=== PATIENT | female | born 1955 | race Caucasian/White ===

== ENCOUNTER → 2019-05-17 12:56 | Outpatient (BNVA) | payer MEDICARE, MEDICAID, SELFPAY | PROVIDERS: Family Provider Family Medicine; PCP Family Medicine; Visit Provider Family Medicine | DX: I15.0 Renovascular hypertension (principal); N18.3 Chronic kidney disease, stage 3 (moderate); E78.5 Hyperlipidemia, unspecified; E11.40 Type 2 diabetes mellitus with diabetic neuropathy, unspecified; E11.42 Type 2 diabetes mellitus with diabetic polyneuropathy | CPT/HCPCS: 36415; 80053; 80061; 83036; 85007; 85027 ==

== ENCOUNTER → 2019-06-17 11:01 | Outpatient (BNVA) | payer MEDICARE, MEDICAID, SELFPAY | PROVIDERS: Family Provider Family Medicine; PCP Family Medicine; Visit Provider Family Medicine | DX: E11.40 Type 2 diabetes mellitus with diabetic neuropathy, unspecified (principal); M79.674 Pain in right toe(s); N39.41 Urge incontinence | CPT/HCPCS: 84550 ==

== ENCOUNTER → 2019-06-21 14:22 | Outpatient (BNVA) | payer MEDICARE, MEDICAID, SELFPAY | PROVIDERS: Family Provider Family Medicine; PCP Family Medicine; Visit Provider Nurse Practitioner Psychiatric/Mental Health | DX: F33.2 Major depressive disorder, recurrent severe without psychotic features (principal); F41.1 Generalized anxiety disorder; F43.12 Post-traumatic stress disorder, chronic | CPT/HCPCS: 99213 ==

== ENCOUNTER 2019-09-13 08:56 | Outpatient (CLI) | payer MEDICARE, MEDICAID, SELFPAY ==
--- NOTE | 2019-09-13 09:02 | MM_ITS ---
WS: [id number] SCREENING DIGITAL MAMMOGRAM WITH CAD HISTORY: SCREENING COMPARISON: None available. Bilateral CC and MLO views submitted. Computer aided detection analyzed. Breast composition: There are scattered areas of fibroglandular density. No suspicious masses, microc alcifications or architectural distortion. MM/[id number] IMPRESSION: BI-RADS: 1-Negative FOLLOW UP: 1 Year Follow-up
== END 2019-09-13 08:57 | disposition home or self-care (01) ==
LOC: RADSHAW 08:56
PROVIDERS: Family Provider Family Medicine; PCP Family Medicine; Visit Provider Family Medicine
DX: Z12.31 Encounter for screening mammogram for malignant neoplasm of breast (principal); I10 Essential (primary) hypertension; E11.9 Type 2 diabetes mellitus without complications; M1A.9XX1 Chronic gout, unspecified, with tophus (tophi); E78.5 Hyperlipidemia, unspecified; E11.42 Type 2 diabetes mellitus with diabetic polyneuropathy
CPT/HCPCS: 77067; 80053; 82044; 83036; 84550; 85025

== ENCOUNTER → 2019-10-11 08:21 | Outpatient (BNVA) | payer MEDICARE, MEDICAID, SELFPAY | PROVIDERS: Family Provider Family Medicine; PCP Family Medicine; Visit Provider Nurse Practitioner Psychiatric/Mental Health | DX: F33.2 Major depressive disorder, recurrent severe without psychotic features (principal); F41.1 Generalized anxiety disorder; F43.12 Post-traumatic stress disorder, chronic | CPT/HCPCS: 99213 ==

== ENCOUNTER → 2019-12-13 07:37 | Outpatient (BNVA) | payer MEDICARE, MEDICAID, SELFPAY | PROVIDERS: Family Provider Family Medicine; PCP Family Medicine; Visit Provider Nurse Practitioner Psychiatric/Mental Health | DX: E11.9 Type 2 diabetes mellitus without complications (principal); I10 Essential (primary) hypertension; E78.5 Hyperlipidemia, unspecified; M1A.9XX1 Chronic gout, unspecified, with tophus (tophi) | CPT/HCPCS: 80053; 80061; 83036; 99213 ==

== ENCOUNTER → 2020-03-06 07:41 | Outpatient (BNVA) | payer MEDICARE, MEDICAID, SELFPAY | PROVIDERS: Family Provider Family Medicine; PCP Family Medicine; Visit Provider Nurse Practitioner Psychiatric/Mental Health | DX: F33.2 Major depressive disorder, recurrent severe without psychotic features (principal); F41.1 Generalized anxiety disorder; F43.12 Post-traumatic stress disorder, chronic | CPT/HCPCS: 99213 ==

== ENCOUNTER → 2020-03-13 08:41 | Outpatient (BNVA) | payer MEDICARE, MEDICAID, SELFPAY | PROVIDERS: Family Provider Family Medicine; PCP Family Medicine; Visit Provider Family Medicine | DX: E11.9 Type 2 diabetes mellitus without complications (principal); I10 Essential (primary) hypertension; N39.41 Urge incontinence; E78.5 Hyperlipidemia, unspecified; N39.46 Mixed incontinence; Z68.36 Body mass index [BMI] 36.0-36.9, adult | CPT/HCPCS: 80053; 83036 ==

== ENCOUNTER → 2020-05-29 08:55 | Outpatient (BNVA) | payer MEDICARE, MEDICAID, SELFPAY | PROVIDERS: Family Provider Family Medicine; PCP Family Medicine; Visit Provider Nurse Practitioner Psychiatric/Mental Health | DX: F33.2 Major depressive disorder, recurrent severe without psychotic features (principal); F41.1 Generalized anxiety disorder; F43.12 Post-traumatic stress disorder, chronic | CPT/HCPCS: 99213 ==

== ENCOUNTER → 2020-06-12 08:57 | Outpatient (BNVA) | payer MEDICARE, MEDICAID, SELFPAY | PROVIDERS: Family Provider Family Medicine; PCP Family Medicine; Visit Provider Family Medicine | DX: I10 Essential (primary) hypertension (principal); E11.9 Type 2 diabetes mellitus without complications; E78.5 Hyperlipidemia, unspecified; M1A.9XX1 Chronic gout, unspecified, with tophus (tophi); Z23 Encounter for immunization | CPT/HCPCS: 80053; 83036; 85025 ==

== ENCOUNTER → 2020-08-23 07:37 | Outpatient (BNVA) | payer MEDICARE, MEDICAID, SELFPAY | PROVIDERS: Family Provider Family Medicine; PCP Family Medicine; Visit Provider Nurse Practitioner Psychiatric/Mental Health | DX: F33.2 Major depressive disorder, recurrent severe without psychotic features (principal); F41.1 Generalized anxiety disorder; F43.12 Post-traumatic stress disorder, chronic | CPT/HCPCS: 99213 ==

== ENCOUNTER → 2020-09-25 09:11 | Outpatient (BNVA) | payer MEDICARE, MEDICAID, SELFPAY | PROVIDERS: Family Provider Family Medicine; PCP Family Medicine; Visit Provider Family Medicine | DX: I10 Essential (primary) hypertension (principal); E11.9 Type 2 diabetes mellitus without complications | CPT/HCPCS: 80053; 83036 ==

== ENCOUNTER → 2020-11-20 07:06 | Outpatient (BNVA) | payer MEDICARE, MEDICAID, SELFPAY | PROVIDERS: Family Provider Family Medicine; PCP Family Medicine; Visit Provider Nurse Practitioner Psychiatric/Mental Health | DX: F33.2 Major depressive disorder, recurrent severe without psychotic features (principal); F41.1 Generalized anxiety disorder; F43.12 Post-traumatic stress disorder, chronic | CPT/HCPCS: 99214 ==

== ENCOUNTER → 2020-12-18 09:17 | Outpatient (BNVA) | payer MEDICARE, MEDICAID, SELFPAY | PROVIDERS: Family Provider Family Medicine; PCP Family Medicine; Visit Provider Family Medicine | DX: E11.9 Type 2 diabetes mellitus without complications (principal); I10 Essential (primary) hypertension; E78.5 Hyperlipidemia, unspecified; N39.41 Urge incontinence | CPT/HCPCS: 80053; 80061; 82043; 83036; 85025 ==

== ENCOUNTER → 2021-01-08 07:21 | Outpatient (BNVA) | payer MEDICARE, MEDICAID, SELFPAY | PROVIDERS: Family Provider Family Medicine; PCP Family Medicine; Visit Provider Nurse Practitioner Psychiatric/Mental Health | DX: F33.2 Major depressive disorder, recurrent severe without psychotic features (principal); F41.1 Generalized anxiety disorder; F43.12 Post-traumatic stress disorder, chronic | CPT/HCPCS: 99214 ==

== ENCOUNTER → 2021-03-19 09:02 | Outpatient (BNVA) | payer MEDICARE, MEDICAID, SELFPAY | PROVIDERS: Family Provider Family Medicine; PCP Family Medicine; Visit Provider Family Medicine | DX: N39.46 Mixed incontinence (principal); E11.9 Type 2 diabetes mellitus without complications; I10 Essential (primary) hypertension | CPT/HCPCS: 80053; 81000; 83036 ==

== ENCOUNTER → 2021-05-29 08:03 | Outpatient (BNVA) | payer MEDICARE, MEDICAID, SELFPAY | PROVIDERS: Family Provider Family Medicine; PCP Family Medicine; Visit Provider Nurse Practitioner Psychiatric/Mental Health | DX: F33.2 Major depressive disorder, recurrent severe without psychotic features (principal); F41.1 Generalized anxiety disorder; F43.12 Post-traumatic stress disorder, chronic | CPT/HCPCS: 99214 ==

== ENCOUNTER → 2021-07-03 11:51 | Outpatient (BNVA) | payer MEDICARE, MEDICAID, SELFPAY | PROVIDERS: Family Provider Family Medicine; PCP Family Medicine; Visit Provider Family Medicine | DX: N39.46 Mixed incontinence (principal); E11.9 Type 2 diabetes mellitus without complications; Z23 Encounter for immunization; E78.5 Hyperlipidemia, unspecified; I10 Essential (primary) hypertension | CPT/HCPCS: 80053; 80061; 83036 ==

== ENCOUNTER → 2021-11-08 15:01 | Outpatient (BNVA) | payer MEDICARE, MEDICAID, SELFPAY | PROVIDERS: Family Provider Family Medicine; PCP Family Medicine; Visit Provider Nurse Practitioner Psychiatric/Mental Health | DX: F33.2 Major depressive disorder, recurrent severe without psychotic features (principal); F41.1 Generalized anxiety disorder | CPT/HCPCS: 99213 ==

== ENCOUNTER → 2022-01-01 11:02 | Outpatient (BNVA) | payer MEDICARE, MEDICAID, SELFPAY | PROVIDERS: Family Provider Family Medicine; PCP Family Medicine; Visit Provider Family Medicine | DX: E11.9 Type 2 diabetes mellitus without complications (principal) | CPT/HCPCS: 80053; 82043; 83036; 85025 ==

== ENCOUNTER → 2022-07-02 09:46 | Outpatient (BNVA) | payer MEDICARE, MEDICAID, SELFPAY | PROVIDERS: Family Provider Family Medicine; PCP Family Medicine; Visit Provider Family Medicine | DX: E78.5 Hyperlipidemia, unspecified (principal); E11.9 Type 2 diabetes mellitus without complications | CPT/HCPCS: 80053; 80061; 83036 ==

== ENCOUNTER 2022-08-23 12:32 | Outpatient (CLI) | payer MEDICARE, MEDICAID, SELFPAY ==
--- NOTE | 2022-08-23 13:05 | MM_ITS ---
WS: [id number] BILATERAL 3D TOMOSYNTHESIS DIGITAL SCREENING MAMMOGRAPHY WITH CAD CLINICAL INFORMATION: SCREEN HISTORY: Screening mammogram. No current complaints. COMPARISON: September 13, 2019 TECHNIQUE: Bilateral CC and MLO views. FINDINGS: Scattered fibroglandular densities bilaterally. No suspicious focal mass, asymmetry, calcifications, or architectural distortion. No evidence of malignancy. A few tiny incidental punctate calcifications . MM/[id number] IMPRESSION: BI-RADS: 2-Benign FOLLOW UP: 1 Year Follow-up Recommend return to annual screening mammography.
== END 2022-08-23 12:33 | disposition home or self-care (01) ==
LOC: RAD 12:36
PROVIDERS: PCP Family Medicine; Visit Provider Family Medicine
DX: Z12.31 Encounter for screening mammogram for malignant neoplasm of breast (principal)
CPT/HCPCS: 77063; 77067

== ENCOUNTER → 2022-12-30 10:26 | Outpatient (BNVA) | payer MEDICARE, MEDICAID, OTHER, SELFPAY | PROVIDERS: PCP Family Medicine; Visit Provider Family Medicine | DX: E11.9 Type 2 diabetes mellitus without complications (principal); Z78.0 Asymptomatic menopausal state | CPT/HCPCS: 80053; 82043; 83036; 85025 ==

== ENCOUNTER 2023-03-03 13:17 | Outpatient (CLI) | payer MEDICARE, MEDICAID, SELFPAY ==
--- NOTE | 2023-03-03 | XR_ITS ---
WS: [id number] DEXA (DUAL ENERGY X-RAY ABSORPTIOMETRY) Bone mineral density was performed using a [employer] machine. HISTORY: postmenopausal COMPARISON: None available. Lumbar spine BMD (L1-L4): 1.147 g/cm2 T score: -0.3 Z score: 0.7 Total hip BMD: Left: 0.906 g/cm2. T score: -0.8 Z score: 0.1 Right: 0.794 g/cm2. T score: -1.7 Z score: -0.7 10 year probability of a major osteoporotic fracture is 29.9% IMPRESSION: OSTEOPENIA based upon the WHO classification for females.
== END 2023-03-03 13:18 | disposition home or self-care (01) ==
LOC: RAD 13:23
PROVIDERS: PCP Family Medicine; Visit Provider Family Medicine
DX: Z78.0 Asymptomatic menopausal state (principal); M85.80 Other specified disorders of bone density and structure, unspecified site
CPT/HCPCS: 77080

== ENCOUNTER 2023-05-11 11:15 | Emergency (ER) | payer MEDICARE, MEDICAID, SELFPAY ==
[2023-05-11] VITALS (76 sets, daily range): BP systolic 65–197; BP diastolic 36–101; PULSE 56–138; RESP 0–48; TEMP 37.9; O2SAT 71–91; BMI 28.3
--- NOTE | 2023-05-11 11:32 | XRR_ITS ---
PROCEDURE INFORMATION: Exam: XR Chest Exam date and time: 05/11/2023 12:23 PM Age: 67 years old Clinical indication: Device placement; Ett placement (vent status); Patient HX: SOB; Ett/og placement TECHNIQUE: Imaging protocol: Radiologic exam of the chest. Views: 1 view. COMPARISON: No relevant prior studies available. FINDINGS: Tubes, catheters and devices: Endotracheal tube approximately 2.5 cm above the soumya. Enteric tube tip in the mid gastric body with side port below the diaphragm. Lungs: Gjyl-ksvlbxb-ejmy-right consolidation. Pleural spaces: No pleural effusion. No pneumothorax. Heart/Mediastinum: No cardiomegaly. Bones/joints: No acute findings. XR/XR chest 1V portable [id number] IMPRESSION: As above.
--- NOTE | 2023-05-11 11:33 | ED_ITS ---
HPI - SOB/Dyspnea 2 General: Chief Complaint: Shortness of Breath/Dyspnea Stated Complaint: WEAKNESS Time Seen by Provider: 05/11/23 11:31 Source: patient Mode of arrival: EMS History of Present Illness: HPI Narrative: 67-year-old female presents emergency ro om in acute respiratory distress from EMS. She is tachypneic and hypoxic. EMS reported she was 70% oxygen saturation on room air. She has been sick for the last week progressively worsening her daughter who is a nurse accompanies her. She states she markedly worsened overnight's been coughing gasping for breath and had a fever at home as well. MD elicited complaint: shortness of breath and cough Pertinent past history: diabetes Onset (ago): week(s) (1) Context: recent illness Associated symptoms: Reports chest congestion, cough and fever(s); Deny abdominal pain or chest pain Treatment prior to arrival: oxygen Related Data: Home oxygen amount: none Review of Systems 2 Const: Reports: fever(s) and chills Card: Denies: chest pain Resp: Reports: dyspnea, non-productive cough, wheezing and chest congestion GI: Denies: abdominal pain : Denies: dysuria, urinary frequency or urinary urgency Musc: Denies: neck pain or back pain Skin/Breast: Denies: rash PFSH ED 2 PFSH: Medical History Mixed stress and urge urinary incontinence Gout Chronic post-traumatic stress disorder Generalized anxiety disorder Major depressive disorder, recurrent severe without psychotic features Essential (primary) hypertension CKD (chronic kidney disease), stage III Diabetic neuropathy Dyslipidemia Urge incontinence Type 2 diabetes mellitus, without long-term current use of insulin Surgical History History of appendectomy History of tonsillectomy History of cholecystectomy H/O section H/O knee surgery Family History Father Non-Hodgkin lymphoma Grandmother Cancer breast Social History Smoking and tobacco/nicotine status: never used tobacco/nicotine Alcohol intake: never Substance/Drug Use: never Adopted: No Caregiver/support person: No Lives independently: No Marital status: Current occupational status: retired Current gender identity: Female Female Reproductive History: Para: 2 Date of menopause: 08/29/99 Physical Exam 2 Const: GENERAL APPEARANCE: cooperative ORIENTATION/CONSCIOUSNESS: Yes awake, Yes oriented to person, Yes oriented to place and Yes oriented to time HENMT: COMMON NORMALS: normocephalic, atraumatic and hearing grossly normal bilaterally HEAD & SCALP: normocephalic and atraumatic Resp: EFFORT & INSPECTION: Yes abnormal respiratory pattern, Yes respiratory distress, Yes labored and Yes uses accessory muscles AUSCULTATION: rhonchi and wheezes Cardio: COMMON NORMALS: No murmurs present (Cardio) RATE: tachycardic GI: COMMON NORMALS: Soft to palpation and No hepatosplenomegaly present A USCULTATION: Yes normoactive bowel sounds PALPATION: Yes Soft to palpation, No Tenderness to palpation present (GI), No Guarding due to palpation present (GI) and Yes No hepatosplenomegaly present Extremity: COMMON NORMALS: normal to inspection, capillary refill normal, no clubbing, cyanosis or edema, no calf tenderness and no pedal edema Neuro: SENSORIUM/ORIENTATION: Yes oriented to person, Yes oriented to place and Yes oriented to time Skin: COMMON NORMALS: no rashes or lesions noted GENERAL SKIN EXAM: no rashes or lesions noted Procedures Central Line Placement Right IJ: Time Out Performed: Yes Patient Placed on Monitor/Pulse Ox: Yes MD Prep: mask, gown and gloves Central Line Prep: Chlorhexidine scrub Local Anesthetic: lidocaine 1% Ultrasound Used for Placement: Yes Central Line Lumen Inserted: triple Post Procedure: sutured in place, good blood return, all ports aspirated, flushed, capped and sterile dressing applied Post Procedure X-Ray: tip of catheter in good position Patient Tolerated Procedure: well Complications: none Intubation Time out performed: Yes sedative: Etomidate Mg Given: 20 Mg Given: 10 Tube Secured Depth (cm): 22 Tube Secured Location: lips Tube Placement Confirmation: visualized tube passing through cords, equal breath sounds bilaterally, no breath sounds over epigastrium and confirmation by capnometry Patient Tolerated Procedure: well Intubation Complications: none Course 2 Vital Signs: Vital signs: Vital Signs Temperature 100.2 F H 05/11/23 11:16 Pulse Rate 59 L 05/11/23 19:00 Respiratory Rate 16 05/11/23 19:00 Blood Pressure 98/59 05/11/23 19:20 Pulse Oximetry 83 L 05/11/23 19:00 Oxygen Delivery Me thod Mechanical Ventil ation 05/11/23 19:00 Oxygen Flow Rate 15 05/11/23 11:16 Fraction of Inspir ed Oxygen 100 05/11/23 13:42 MDM - SOB/Dyspnea Medical Decision Making Patient initially presents in severe respiratory distress but is also hypertensive. She has significant leukocytosis. Her work of breathing was significant with a respiratory rate in the 50s and 60s at times. Initial blood gas was much better than anticipated how however she continued to have severe respiratory distress she was intubated because of her work of breathing. Initially after intubation she remained hypertensive and her oxygenation significantly improved. However after her first blood gas she become more acidotic she began to increase respirations significantly over the respiratory setting on the ventilator. This began about an hour after she was intubated. She was given etomidate and vecuronium for her intubation, then initially was sustained on fentanyl and Versed for sedatives. According to daughter the patient takes pain medications in the form of narcotics regularly suspected that she was showing tolerance to the fentanyl. We added propofol. Patient was then noted to develop A-fib with rapid ventricular response she did respond well initially to push dose of Cardizem and took some time to get the IV drip of Cardizem started by time her rate is gone up again she was rebolus Cardizem was titrated up. At this time she began to develop hypotension. Initially we given her small amounts of fluids but did not give her a full sepsis bolus because she was not hypotensive and rather actually hypertensive. When she developed a hypotension she was given a full sepsis bolus. She already had cultures and received antibiotics. Subsequently Levophed was started.. We then added Precedex for further sedation. Her pressure continued to remain very low Levophed was titrated up and we did titrated the propofol down and eventually stopped her heart rate converted back to normal sinus rhythm were able to stop the Cardizem. Around this time her RSV came back as positive flu and COVID were negative. We initially had plan to admit the patient here but developed significant problems maintaining her oxygen saturations on the ventilator. We did have some success with a single push dose of vecuronium with ceftriaxone. Significant results obtained was 85 to 87%. Patient was continuously respiratory acidosis. Discussed with hospitalist service initially with repeat admitted here this event however because of continued difficulty managing her oxygenation status we mutually decided it would be in the patient's best interest to be transferred to a tertiary care center with glaze maker and pulmonology available suspect she may benefit from bronchial lavage to evaluate for mucous plugging. Discussed this with the daughter she is in agreement. Patient be transferred via air ambulance we have had acceptance at [facility] in [place] to the ICU. Medical Records I reviewed the patient's medical records. Lab Data I reviewed the patient's lab results. 05/11/23 11:49 05/11/23 11:49 Labs/Radiology: Radiology Impressions Chest X-Ray 05/11/23 14:33 IMPRESSION: As above. Gallbladder Ultrasound 05/11/23 15:05 IMPRESSION: Gallbladder is poorly visualized, possibly contracted. Consider CT or MRCP if there is further clinical concern. Laboratory Results WBC 26.30 10^3/uL (3.29-11.43) H 05/11/23 11:49 RBC 6.05 10^6/uL (3.85-5.65) H 05/11/23 11:49 Hgb 16.50 g/dL (11.27-16.99) 05/11/23 11:49 Hct 50.5 % (36-47) H 05/11/23 11:49 MCV 83.5 fl (85-98) L 05/11/23 11:49 MCH 27.3 pg (27-33) 05/11/23 11:49 MCHC 32.7 g/dL (30-55) 05/11/23 11:49 RDW 14.7 % (12.1-15.1) 05/11/23 11:49 Plt Count 346 10^3/cmm (157-399) 05/11/23 11:49 MPV 10.8 fL (7.4-10.4) H 05/11/23 11:49 Lymph % (Auto) Not Reportable 05/11/23 11:49 Menard % (Auto) Not Reportable 05/11/23 11:49 Lymph # (Auto) Not Reportable 05/11/23 11:49 Menard # (Auto) Not Reportable 05/11/23 11:49 Total Counted 100 (0-100) 05/11/23 11:49 Atypical Lymphs % 4.0 % (0-5) 05/11/23 11:49 Absolute Neutrophils 22.9 10^3/cmm (1.4-6.5) H 05/11/23 11:49 Segmented Neutrophils 81 % 05/11/23 11:49 Abs Segm Neuts (Man) 21.3 10/cmm (1.6-7.1) H 05/11/23 11:49 Band Neutrophils 6.0 % 05/11/23 11:49 Abs Band Neuts (Man) 1.6 10^3/cmm (0.0-1.2) H 05/11/23 11:49 Absolute Lymphocytes 1.8 10^3/cmm (1.2-3.4) 05/11/23 11:49 Lymphocytes (Manual) 3 % 05/11/23 11:49 Monocytes (Manual) 0.0 % 05/11/23 11:49 Absolute Monocytes 0.0 10^3/cmm (0.1-0.6) L 05/11/23 11:49 Eosinophils (Manual) 0 % 05/11/23 11:49 Absolute Eosinophils 0.0 10^3/cmm (0.0-0.7) 05/11/23 11:49 Basophils (Manual) 0.0 % 05/11/23 11:49 Absolute Basophils 0.0 10^3/cmm (0.0-0.2) 05/11/23 11:49 Metamyelocytes 2.0 % 05/11/23 11:49 Myelocytes 3.0 % 05/11/23 11:49 Platelet Estimate Normal (Normal) 05/11/23 11:49 D-Dimer 4.05 ug/mLFEU (0-0.59) H 05/11/23 11:49 Specimen Type Arterial 05/11/23 15:00 Sample Site Brachial, left 05/11/23 15:00 ABG pH 7.24 (7.35-7.45) L 05/11/23 15:00 ABG pCO2 38.5 mmHg (35-45) 05/11/23 15:00 ABG pO2 48.4 mmHg (80.0-100.0) L 05/11/23 15:00 ABG PO2/FiO2 Ratio 0 05/11/23 15:00 ABG HCO3 16.4 mmol/L (22-26) L 05/11/23 15:00 ABG O2 Saturation 77.6 05/11/23 15:00 ABG Base Excess -10.3 mmol/L (-2.0-2.0) L 05/11/23 15:00 Alberto Test N/a 05/11/23 15:00 A-a O2 Gradient 80.4 mmHg (5-10) H 05/11/23 15:00 Hematocrit 49.5 % (37-47) H 05/11/23 15:00 Hgb O2 Saturation 76.2 % (95-100) L 05/11/23 15:00 Carboxyhemoglobin 1.2 %THgb (0.4-20.1) 05/11/23 15:00 Methemoglobin 0.6 % (0.4-1.5) 05/11/23 15:00 Total Hemoglobin 16.1 g/dL (12-16) H 05/11/23 15:00 Sodium 138.0 mmol/L (131-143) 05/11/23 15:00 Potassium 3.5 mmol/L (3.5-5.0) 05/11/23 15:00 Glucose 298.0 mg/dL (70-115) H 05/11/23 15:00 Ionized Calcium 1.2 mmol/L (1.1-1.4) 05/11/23 15:00 O2 Delivery Device Vent 05/11/23 15:00 FiO2 100.0 % 05/11/23 15:00 Tidal Volume 0.36 05/11/23 15:00 PEEP 10.0 cmH20 05/11/23 15:00 Nailing Machine Operator Automatic ID Gd 05/11/23 15:00 Sodium 135 mmol/L (136-145) L 05/11/23 11:49 Potassium 3.7 mmol/L (3.5-5.1) 05/11/23 11:49 Chloride 94 mmol/L (98-107) L 05/11/23 11:49 Carbon Dioxide 17 mmol/L (22-29) L 05/11/23 11:49 Anion Gap 27.7 (5-19) H 05/11/23 11:49 BUN 25 mg/dL (8-23) H 05/11/23 11:49 Creatinine 0.7 mg/dL (0.5-0.9) 05/11/23 11:49 GFR Calculation 83.0 mL/min (90-130) L 05/11/23 11:49 Glucose 264 mg/dL (65-115) H 05/11/23 11:49 Calculated Osmolality 294 mOsm/kg (285-295) 05/11/23 11:49 Lactic Acid 3.9 mmol/L (0.5-2.2) H 05/11/23 11:49 Lactic Acid (Sepsis) 7.5 mmol/L (0.5-2.2) H* 05/11/23 15:07 Calcium 9.6 mg/dL (8.5-10.5) 05/11/23 11:49 Magnesium 2.1 mg/dL (1.7-2.3) 05/11/23 11:49 Total Bilirubin 2.2 mg/dL (0.15-1.2) H 05/11/23 11:49 AST 48 U/L (0-32) H 05/11/23 11:49 ALT 29 U/L (0-33) 05/11/23 11:49 Alkaline Phosphatase 133 U/L (35-105) H 05/11/23 11:49 Creatine Kinase 237 U/L (26-192) H 05/11/23 11:49 Troponin T Baseline 13 ng/L (0-10) H 05/11/23 11:49 Troponin T 120 Minute 17.95 ng/L (0-10) H 05/11/23 14:34 Delta Troponin T 4.95 ABS# (0-10) 05/11/23 14:34 Troponin T Hi Sens 6Hr 32.87 ng/L (0-10) H 05/11/23 18:06 Troponin T Hi Sens 6Hr Delta 19.87 ng/L (0-12) H* 05/11/23 18:06 NT-Pro-B Natriuret Pep 496 pg/mL (0-125) H 05/11/23 11:49 Total Protein 6.3 g/dL (6.6-8.7) L 05/11/23 11:49 Albumin 3.1 g/dL (3.5-5.2) L 05/11/23 11:49 Globulin 3.2 g/dL (1.3-4.6) 05/11/23 11:49 Lipase 12 U/L (13-60) L 05/11/23 11:49 Urine Color Dora (Yellow) A 05/11/23 12:50 Urine Appearance Clear (CLEAR) 05/11/23 12:50 Urine pH 5 (5-7) 05/11/23 12:50 Ur Specific [place] 1.015 (1.005-1.030) 05/11/23 12:50 Urine Protein 2+ (Negative) H 05/11/23 12:50 Urine Glucose (UA) Norm (Normal) 05/11/23 12:50 Urine Ketones 2+ (Negative) H 05/11/23 12:50 Urine Blood 3+ (Negative) H 05/11/23 12:50 Urine Nitrate Negative (Negative) 05/11/23 12:50 Urine Bilirubin 1+ (Negative) H 05/11/23 12:50 Urine Urobilinogen 4 mg/dL (Negative) H 05/11/23 12:50 Ur Leukocyte Esterase Negative (Negative) 05/11/23 12:50 Urine RBC 10-15 /hpf (0-2) H 05/11/23 12:50 Urine WBC 5-10 /hpf (0-5) H 05/11/23 12:50 Ur Squamous Epith Cells 5-10 /hpf (0-5) H 05/11/23 12:50 Amorphous Sediment Not Reportable 05/11/23 12:50 Urine Bacteria 1+ /hpf (NONE) H 05/11/23 12:50 Serum Ketones Negative (Negative) 05/11/23 11:49 Coronavirus 229E (PCR) Not detected (NOT DETECT) 05/11/23 13:20 Influenza Type A Ag negative (Negative) 05/11/23 12:24 Influenza Type B Ag negative (Negative) 05/11/23 12:24 RSV Type A (PCR) Not detected (NOT DETECT) 05/11/23 17:14 RSV Type B (PCR) Detected (NOT DETECT) A 05/11/23 17:14 SARS-CoV-2 (PCR) Not detected (NOT DETECT) 05/11/23 13:20 All radiology interpretation(s) finalized by discharge Critical Care Time 2 Critical Care Time: Total Critical Care Time: 120 Attestation: The high probability of a clinically significant, sudden or life threatening deterioration of the patient's cardiovascular respiratory system(s) required my full and direct attention, intervention and personal management. The critical care time is as shown. This time is in addition to time spent performing any reported procedures but includes the following: [x] Data and vital sign review and interpretation [x] Patient assessment, examination and intervention [x] Documentation [x] Medication orders and management Discharge Plan Discharge Patient Disposition: Admitted As Inpatient Clinical Impression: Pneumonia, Type 2 diabetes mellitus, without long-term current use of insulin, Sepsis, RSV bronchiolitis Condition: Stable Coding Level of Care Code ED Cloth Examiner Machine for Juany Kiser
[2023-05-11 11:47] LABS: ABG PCO2 33.2 mmHg (35-45); ABG PH Result 7.37 (7.35-7.45); Alveolar-Arterial Oxygen Gradi 77.9 mmHg (5-10); Arterial Blood Gas Hematocrit 52.6 % (37-47); Base Excess ABG -4.8 mmol/L (-2.0-2.0); Blood Gas Operator Identificat glc; Blood Gas Sample Site Brachial, right; Blood Gas Sample Type Arterial; Carboxyhemoglobin 0.9 %THgb (0.4-20.1); HCO3 ABG 19.4 mmol/L (22-26); HGB O2 Sat 93.2 % (95-100); Ionized Calcium Level - ABG 1.2 mmol/L (1.1-1.4); Methemoglobin 0.2 % (0.4-1.5); Oxygen Device BIPAP; Oxygen Saturation ABG 94.2; PO2 ABG 73.4 mmHg (80.0-100.0); PO2 FiO2 Ratio Arterial Blood 0; Potassium Level - ABG 3.2 mmol/L (3.5-5.0); Total Hemoglobin 17.2 g/dL (12-16)
[2023-05-11 12:02] LABS: Hematocrit 50.5 % (36-47); Mean Corpuscular HGB Conc 32.7 g/dL (30-55); Mean Corpuscular Hemoglobin 27.3 pg (27-33); Mean Corpuscular Volume 83.5 fl (85-98); Mean Platelet Volume 10.8 fL (7.4-10.4); Platelet Count 346 10^3/cmm (157-399); Red Blood Count 6.05 10^6/uL (3.85-5.65); Red Cell Distribution Width 14.7 % (12.1-15.1)
[2023-05-11] MEDS: etomidate 2 mg/mL INJ SDV 10 mL 20 MG IVP (12:05)
[2023-05-11] MEDS: vecuronium 10 mg SDV IVP ×2 (12:06→15:56)
--- NOTE | 2023-05-11 12:15 | PC.NURSE ---
Patient increased work of breathing and did not improve on the bipap. Provider made decision to intubate. 1205 20 mg etomidate given IVP 1205 10mg vecoronium given IVP 1206 patient intubated 8 ET tube 22@lip.
[2023-05-11 12:18] LABS: Ketone (Acetest) Serum Negative (Negative)
--- NOTE | 2023-05-11 12:22 | PC.PHAR ---
MEDICATIONS VERIFIED BY CURRENT MED LIST LAST UPDATED 03/08/23. PT UNABLE TO VERIFY ANY OF HER MEDICATIONS AT THIS TIME. 05/11/23
[2023-05-11 12:29] LABS: Lactic Sepsis W/Reflex 3.9 mmol/L (0.5-2.2)
[2023-05-11 12:30] LABS: Troponin(5th) Baseline 13 ng/L (0-10)
[2023-05-11] MEDS: propofol 1,000 MG/100 ML INJ 10.89 MG IV (12:31)
[2023-05-11] MEDS: sodium chloride 0.9% 1,000 ML 999 ML IV (12:34)
[2023-05-11 12:36] LABS: Alanine Aminotransferase 29 U/L (0-33); Albumin Level 3.1 g/dL (3.5-5.2); Alkaline Phosphatase 133 U/L (35-105); Blood Urea Nitrogen 25 mg/dL (8-23); Calcium 9.6 mg/dL (8.5-10.5); Carbon Dioxide 17 mmol/L (22-29); Chloride 94 mmol/L (98-107); Creatine Phosphokinase 237 U/L (26-192); Globulin 3.2 g/dL (1.3-4.6); Glucose 264 mg/dL (65-115); Lipase 12 U/L (13-60); Magnesium 2.1 mg/dL (1.7-2.3); NT Pro B Type Natriuretic Pept 496 pg/mL (0-125); Osmolality Calculated 294 mOsm/kg (285-295); Sodium 135 mmol/L (136-145); Total Bilirubin 2.2 mg/dL (0.15-1.2); Total Protein 6.3 g/dL (6.6-8.7)
[2023-05-11 12:43] LABS: Anion Gap 27.7 (5-19); Aspartate Amino Transferase 48 U/L (0-32); Potassium 3.7 mmol/L (3.5-5.1)
[2023-05-11 12:50] LABS: Slide Review Slide Review Perform
[2023-05-11 12:51] LABS: Absolute Neutrophil 22.9 10^3/cmm (1.4-6.5); Absolute Segmented Neutrophil 21.3 10/cmm (1.6-7.1); Band Neutrophils Absolute 1.6 10^3/cmm (0.0-1.2); Eosinophils 0 %; Lymphocytes 3 %; Lymphocytes Absolute 1.8 10^3/cmm (1.2-3.4); Platelet Estimate Normal (Normal); Segmented Neutrophils 81 %; Total Cells Counted 100 (0-100)
[2023-05-11 13:09] LABS: ABG PCO2 53.7 mmHg (35-45); ABG PH Result 7.21 (7.35-7.45); Alveolar-Arterial Oxygen Gradi 1.7 mmHg (5-10); Arterial Blood Gas Hematocrit 51.9 % (37-47); Base Excess ABG -7.3 mmol/L (-2.0-2.0); Blood Gas Allen Test Pos; Blood Gas Sample Site Radial, right; Blood Gas Sample Type Arterial; Carboxyhemoglobin 0.6 %THgb (0.4-20.1); HCO3 ABG 21.4 mmol/L (22-26); HGB O2 Sat 89.7 % (95-100); Ionized Calcium Level - ABG 1.2 mmol/L (1.1-1.4); Methemoglobin 0.3 % (0.4-1.5); Oxygen Device VENT; Oxygen Saturation ABG 90.6; PO2 ABG 71.4 mmHg (80.0-100.0); Potassium Level - ABG 3.2 mmol/L (3.5-5.0); Total Hemoglobin 16.9 g/dL (12-16)
[2023-05-11 13:10] LABS: D Dimer 4.05 ug/mLFEU (0-0.59)
[2023-05-11 13:21] LABS: Bilirubin Urine 1+ (Negative); Blood Urine 3+ (Negative); Glucose Urine UA Norm (Normal); Ketones Urine 2+ (Negative); Nitrate Urine Negative (Negative); Protein Urine 2+ (Negative); Specific Gravity, Urine 1.015 (1.005-1.030); Urine Appearance Clear (CLEAR); Urine Color Orange (Yellow); Urobilinogen Urine 4 mg/dL (Negative); pH Urine 5 (5-7)
[2023-05-11 13:22] LABS: Add Urine Culture? Yes; Add Urine Microscopic? YES; Bacteria Urine 1+ /hpf; Leukocyte Esterase Urine Negative (Negative)
[2023-05-11] MEDS: dexamethasone 10 mg/mL INJ IM (13:32)
[2023-05-11 13:33] LABS: Influenza A by IFA negative (Negative); Influenza B by IFA negative (Negative)
[2023-05-11] MEDS: ipratropium-albuterol 3 mL Neb 6 ML INHALATION (13:36)
[2023-05-11] MEDS: piperacillin-tazobactam 3.375 GM in sodium chloride 0.9% (plus) 50 ML IV (13:37)
--- NOTE | 2023-05-11 13:43 | ECG_ITS ---
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 Measurements Intervals [place] Rate: 130 P: 0 IA: 0 QRS: 66 QRSD: 94 T: 49 QT: 349 QTc: 514 Interpretive Statements ATRIAL FIBRILLATION WITH RAPID VENTRICULAR RESPONSE MODERATE ST DEPRESSION [0.05+ mV ST DEPRESSION] No previous ECG available for comparison Electronically Signed On 05-11-2023 14:23:01 TIRE INSPECTOR by Tejinder Tyler M.D. [email or web address]
[2023-05-11 13:45] LABS: Reflex Lactate Order REFLEX LACTIC ORDERD
[2023-05-11] MEDS: dilTIAZem 5 mg/mL SDV 5 mL 20 MG IVP (13:56)
--- NOTE | 2023-05-11 14:00 | PC.NURSE ---
Patient respirations elevated to 50 and having poor oxygen saturations despite mechanical ventilation. Patient trying to breath over vent despite sedation. Provider notified. More sedation medications ordered. Patient heart rate also increased to 120's on the monitor. EKG obtained which showed AFIB, diltiazem ordered.
[2023-05-11] MEDS: midazolam hcl 100 MG/100 ML BAG IV ×2 (14:09→14:25)
[2023-05-11] MEDS: dilTIAZem 100 MG in sodium chloride 0.9% (add-van) 100 ML 10 MG IV (14:24)
[2023-05-11] MEDS: fentaNYL 1,000 MCG/100 ML BAG 5 MCG IV (14:25)
--- NOTE | 2023-05-11 14:33 | XRR_ITS ---
PROCEDURE INFORMATION: Exam: XR Chest Exam date and time: 05/11/2023 2:19 PM Age: 67 years old Clinical indication: Other vascular access device placement or adjustment; Central line, non-tunnelled; Patient HX: Central line placement TECHNIQUE: Imaging protocol: Radiologic exam of the chest. Views: 1 view. COMPARISON: CR (CHEST, ) 05/11/2023 12:23 PM FINDINGS: Right-sided central line tip projects over the cavoatrial junction. XR/XR chest 1V portable [id number] IMPRESSION: As above.
[2023-05-11] MEDS: midazolam 1 mg/mL INJ 2 mL 2 MG IVP (14:39)
--- NOTE | 2023-05-11 14:50 | PC.NURSE ---
Patient oxygen saturations continue to go down despite increased sedation and suctioning. Provider aware. More sedation medications ordered.
--- NOTE | 2023-05-11 14:51 | P.HP_ITS ---
Providers/Chief Complaint 2 Admitting Physician: Lawrence Abdi Primary Care Provider: Porsche Douglas DO Chief Complaint: WEAKNESS History of Present Illness Treat as noted as a consult note as patient is of being transferred from the ER to higher level care. 67-year-old lady with history of diabetes, diabetic neuropathy, CKD 3, HLD, MDD, presents with due to shortness of breath, cough, brought in by EMS, hypoxic on presentation 88% on 15 L nonrebreather, she has been sick for about a week refusing to come in until today. In ER tachypneic, labored breathing. Initially maintained on 15 L nonrebreather, but with respiratory distress was intubated for mechanical ventilatory support. Noted fever 100.2 Fahrenheit. Leukocytosis 26.3. ABG 7.21/53.7/71.4. Chest x-ray with left greater than right consolidation. In ER additionally went into new atrial fibrillation with RVR for which she received Cardizem. Central line was placed, x-ray reviewed and central line tip appears to be at Cavo atrial junction per radiologist, however, noted abnormal D-dimer, she will be going for CT angiogram, will confirm position. Has been having high requirements for sedation. Discussed condition and plans with her daughter at bedside. Review of Systems 2 General: Reports: ROS unobtainable due to endotracheal tube Medications/Allergies Home Medications Medication Instructions Recorded Confirmed Last Taken Type incontinence pad, liner, disp #18 ea 08/13/19 05/11/23 Unknown Rx (Poise Pads) venlafaxine 150 mg 150 mg PO QAM #90 caps 10/24/22 05/11/23 Unknown Rx capsule,extended release 24 hr (Effexor XR) allopurinol 300 mg tablet 300 mg PO DAILY #90 tabs 12/09/22 05/11/23 Unknown Rx amlodipine 5 mg tablet (Norvasc) 5 mg PO DAILY 90 days #90 tabs 12/30/22 05/11/23 Unknown Rx oxybutynin chloride 10 mg 20 mg (2 x 10 mg) PO QDAY 90 days 12/30/22 05/11/23 Unknown Rx tablet,extended release 24 hr #180 tabs simvastatin 20 mg tablet (Zocor) 20 mg PO QDAY #90 tabs 12/30/22 05/11/23 Unknown Rx clonazepam 0.5 mg tablet (Klonopin) 0.5 mg PO TID PRN anxiety 30 days 01/16/23 05/11/23 Unknown Rx #90 tabs semaglutide 1 mg/dose (4 mg/3 mL) 1 mg (0.75 mL) SUBCUT .weekly #3 mL 03/04/23 05/11/23 Unknown Rx subcutaneous pen injector alendronate 70 mg tablet (Fosamax) 70 mg PO .weekly #12 tabs 03/06/23 05/11/23 Unknown Rx calcium carbonate 500 mg calcium 500 mg PO DAILY #90 tabs 03/06/23 05/11/23 Unknown Rx (1,250 mg) tablet cholecalciferol (vitamin D3) 125 125 mcg PO DAILY #90 caps 03/06/23 05/11/23 Unknown Rx mcg (5,000 unit) capsule pregabalin 50 mg capsule (Lyrica) 50 mg PO BID #180 caps 03/18/23 05/11/23 Unknown Rx escitalopram oxalate 10 mg tablet 10 mg PO QAM 05/11/23 05/11/23 Unknown History (Lexapro) lisinopril 20 mg tablet 20 mg PO DAILY 05/11/23 05/11/23 Unknown History Allergies Allergy/AdvReac Type Severity Reaction Status Date / Time No Known Allergies Allergy Verified 01/16/23 11:16 PFSH Acute 2 PFSH: Medical History Mixed stress and urge urinary incontinence Gout Chronic post-traumatic stress disorder Generalized anxiety disorder Major depressive disorder, recurrent severe without psychotic features Essential (primary) hypertension CKD (chronic kidney disease), stage III Diabetic neuropathy Dyslipidemia Urge incontinence Type 2 diabetes mellitus, without long-term current use of insulin Surgical History History of appendectomy History of tonsillectomy History of cholecystectomy H/O section H/O knee surgery Family History Father Non-Hodgkin lymphoma Grandmother Cancer breast Social History Smoking and tobacco/nicotine status: never used tobacco/nicotine Alcohol intake: never Substance/Drug Use: never Adopted: No Caregiver/support person: No Lives independently: No Marital status: Current occupational status: retired Current gender identity: Female Female Reproductive History: Para: 2 Date of menopause: 08/29/99 Vitals/I&O/Wt Last Vital Signs Temp 100.2 F H 05/11/23 11:16 Pulse 71 05/11/23 13:38 Resp 23 H 05/11/23 13:42 BP 162/83 05/11/23 11:16 Pulse Ox 91 05/11/23 13:38 O2 Del Method Mechanical Ventilation 05/11/23 13:38 O2 Flow Rate 15 05/11/23 11:16 FiO2 100 05/11/23 13:42 05/10/23 05/11/23 05/11/23 22:59 06:59 14:59 Intake Total 1024.608 / 1024.608 Balance 1024.608 / 1024.608 Weight last 48 hrs Weight 72.575 kg Physical Exam 2 Const: GENERAL APPEARANCE: patient mechanically ventilated HENMT: COMMON NORMALS: oropharynx normal Neck/C-Spine: COMMON NORMALS: no JVD Resp: EFFORT & INSPECTION: Yes tachypneic OTHER: Diminished air entry bilaterally, worse on the left. Cardio: COMMON NORMALS: no JVD, regular rhythm, S1 normal heart sound present, S2 normal heart sound present and No murmurs present (Cardio) RHYTHM: regular rhythm HEART SOUNDS: S1 normal heart sound present and S2 normal heart sound present GI: COMMON NORMALS: Normal to inspection, nondistended, normoactive bowel sounds present, Soft to palpation and non-tender PALPATION: Yes Soft to palpation Extremity: COMMON NORMALS: no joint enlargement and no pedal edema Neuro: COMMON NORMALS: moves all extremities Skin: COMMON NORMALS: no rashes or lesions noted GENERAL SKIN EXAM: no rashes or lesions noted Urinary Catheter Management: Jamison: Cath Placed During This Visit: yes Urinary Catheter Date of Insertion: 05/11/23 Urinary Catheter Time of Insertion: 12:55 Sepsis: Focused sepsis exam: On reassessment good capillary refill. Maintain blood pressure so far. Data 05/11/23 11:49 05/11/23 11:49 A&P Assessment and plan (1) Acute respiratory failure with hypoxia and hypercapnia: With respiratory distress on presentation, hypoxia despite 15 L nonrebreather saturating in the 80s, tachypneic, increased work of breathing, intubated for mechanical ventilatory support. Has high sedation requirements, fighting the ventilator, sedation is being uptitrated, although some limitation of low blood pressure currently also after Cardizem which she received for A-fib with RVR. Additional assessment with CT angiogram chest. Reviewed vitals, CBC, CMP, potassium 3.7, will give supplement. Magnesium noted 2.1. EKG and troponin reviewed, troponin with mild elevation 13. Noted extensive bilateral pneumonia, with consolidation worse on the left side. Rapid influenza noted negative. Collect sputum culture, urine bacterial distress, COVID-19 PCR. Continue mechanical ventilatory support. Sedation. Discussed with daughter if continuing to have ventilator dyssynchrony may require paralytic. Received Zosyn and vancomycin, with chronic disease, risk of kidney injury discussed will switch antibiotics to meropenem, vancomycin for now. Blood cultures obtained. Follow-up. Possible sepsis with leukocytosis 26.3, tachypnea in the mid 20s. Does have fever 100.2 as well. Source pulmonary likely. Additionally assess gallbladder, assess urine. Empiric antibiotic as above. Lactic acid 3.9, follow-up pending. Received fluid bolus. Discussed on a number of occasions with ER physician and updated her daughter. (2) Paroxysmal atrial fibrillation with RVR: Received Cardizem, but blood pressures becoming softer, avoid additional Cardizem. Heart rates remaining in 120s. Discussed with her daughter will give digoxin as renal function currently doing okay, creatinine outside normal. Monitor heart rates, blood pressures. Additionally noted abnormal D-dimer 4.05, possibly secondary to atrial fibrillation, but with respiratory failure cannot exclude PE, will be further assessed as per discussion with CT angiogram chest. No prior workup for coronary disease. New onset atrial fibrillation. Possible underlying coronary artery disease. Complete troponin EKG series to assess for cardiac ischemia. Currently not suggestive. Once heart rate improves assess TTE. Subsequently will benefit from additional risk stratification depending condition, possibly stress test. Elevated risk of stroke, with long-term would benefit from anticoagulation. Plan Possible UTI: UA somewhat equivocal for UTI. Noted to have some urinary incontinence. Urine culture pending. Follow-up. For now empiric coverage as above with meropenem. Hyperbilirubinemia: Noted bilirubin up to 2.2. Possible some cholestasis secondary to acute medical condition, noted mild transaminitis AST of 48. Noted mild elevation of alk phos 133. Will request gallbladder ultrasound assess for possible cholecystitis. Diabetes, diabetic neuropathy, Accu-Cheks, sliding scale insulin. CKD 3, HLD, continue statin. Follow-up liver parameters, noted mild transaminitis. MDD: Requesting medications to be confirmed. Continue her medications once available. HTN: Hold antihypertensives for now while optimizing treatment for A-fib with RVR. Attestations 2 Medical Necessity Statement*: Admission of over 2 midnights will be needed for assessment management of acute respiratory failure. Extensive pneumonia. Coding Level of Care Code Critical Care >/= 30 minutes Critical care time (in minutes): 50 The high probability of a clinically significant, sudden or life threatening deterioration, as referenced in this documentation, required my full and direct attention, intervention and personal management. The critical care time shown is in addition to time spent performing any reported separately billable procedures and includes the following: [x] Data and vital sign review and interpretation [x ] Patient assessment, examination and intervention [x] Medication orders and management [x] Patient/Family updates as able [x] Care Coordination and Documentation. Diagnoses Acute respiratory failure with hypoxia and hypercapnia J96.01; J96.02 Paroxysmal atrial fibrillation with RVR I48.0
[2023-05-11] MEDS: digoxin 250 mcg/ml INJ 2 mL IVP (14:55)
--- NOTE | 2023-05-11 15:05 | USR_ITS ---
PROCEDURE INFORMATION: Exam: US Abdomen, Limited; Right Upper Quadrant Exam date and time: 05/11/2023 3:45 PM Age: 67 years old Clinical indication: Assess for poss cholecystitis TECHNIQUE: Imaging protocol: Real time ultrasound of the abdomen with image documentation. Limited exam focused on the right upper quadrant. COMPARISON: No relevant prior studies available. FINDINGS: Liver: No acute findings. Gallbladder: Gallbladder is decompressed and poorly visualized. Biliary ducts: Common duct measures approximately 4 mm, within normal limits. Pancreas: Poorly visualized. Right kidney: No hydronephrosis. US/US gall bladder 02018 IMPRESSION: Gallbladder is poorly visualized, possibly contracted. Consider CT or MRCP if there is further clinical concern.
[2023-05-11] MEDS: vancomycin 1,000 MG in sodium chloride 0.9% 250 ML 250 MG IV (15:07)
[2023-05-11 15:13] LABS: Troponin 5 2HR 17.95 ng/L (0-10); Troponin 5 2HR Delta 4.95 ABS# (0-10)
[2023-05-11 15:17] LABS: ABG PCO2 38.5 mmHg (35-45); ABG PH Result 7.24 (7.35-7.45); Alveolar-Arterial Oxygen Gradi 80.4 mmHg (5-10); Arterial Blood Gas Hematocrit 49.5 % (37-47); Base Excess ABG -10.3 mmol/L (-2.0-2.0); Blood Gas Operator Identificat GD; Blood Gas Sample Site Brachial, left; Blood Gas Sample Type Arterial; Blood Gas Tidal Volume 0.36; Carboxyhemoglobin 1.2 %THgb (0.4-20.1); HCO3 ABG 16.4 mmol/L (22-26); HGB O2 Sat 76.2 % (95-100); Ionized Calcium Level - ABG 1.2 mmol/L (1.1-1.4); Methemoglobin 0.6 % (0.4-1.5); Oxygen Device VENT; Oxygen Saturation ABG 77.6; PO2 ABG 48.4 mmHg (80.0-100.0); PO2 FiO2 Ratio Arterial Blood 0; Potassium Level - ABG 3.5 mmol/L (3.5-5.0); Total Hemoglobin 16.1 g/dL (12-16)
[2023-05-11] MEDS: dexmedeTOMIDine 0.9 % NaCL 400 MCG/100 ML PREMIX 9.07 MCG IV (15:26)
[2023-05-11 15:44] LABS: Lactic Acid level (Lactate) 7.5 mmol/L (0.5-2.2)
--- NOTE | 2023-05-11 16:15 | PC.NURSE ---
Patient respirations are now within normal limits and sedated but unable to get oxygen saturation above 85% despite all other avenues.
[2023-05-11] MEDS: sodium chloride 0.9% 500 ML 999 ML IV (16:24)
--- NOTE | 2023-05-11 16:30 | PC.NURSE ---
Patient blood pressure continue to decrease despite fluid bolus and decreasing sedation medications that lower blood pressure. Provider aware. Levophed started.
[2023-05-11] MEDS: sodium chloride 0.9% 2,177.25 ML 2177.25 ML IV (16:32)
[2023-05-11] MEDS: norepinephrine 4 MG/250 ML BAG 30 MG IV (16:41)
[2023-05-11 17:00] LABS: Adenovirus Not Detected (NOT DETECT); Chlamydia Pneumoniae Not Detected (NOT DETECT); Coronavirus 229E,HKU1,NL63,OC4 Not Detected (NOT DETECT); Human Metapneumovirus Not Detected (NOT DETECT); Human Rhinovirus/Enterovirus Not Detected (NOT DETECT); Influenza A Not Detected (NOT DETECT); Influenza A H1 Not Detected (NOT DETECT); Influenza A H1-2009 Not Detected (NOT DETECT); Influenza A H3 Not Detected (NOT DETECT); Influenza B Not Detected (NOT DETECT); Mycoplasma Pneumoniae Not Detected (NOT DETECT); Parainfluenza Virus Type 1 Not Detected (NOT DETECT); Parainfluenza Virus Type 2 Not Detected (NOT DETECT); Parainfluenza Virus Type 3 Not Detected (NOT DETECT); Parainfluenza Virus Type 4 Not Detected (NOT DETECT); Respiratory Syncytial Virus A Not Detected (NOT DETECT); Respiratory Syncytial Virus B Detected (NOT DETECT); SARS-COV-2 Not Detected (NOT DETECT)
[2023-05-11] MEDS: propofol 1,000 MG/100 ML INJ 4.36 MG IV (17:05)
[2023-05-11 17:14] LABS: Respiratory Syncytial Virus A Not Detected (NOT DETECT)
[2023-05-11 17:15] LABS: Respiratory Syncytial Virus B Detected (NOT DETECT)
--- NOTE | 2023-05-11 17:32 | ECG_ITS ---
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 Measurements Intervals [place] Rate: 57 P: 48 [place]: 280 QRS: 62 QRSD: 100 T: 68 QT: 458 QTc: 450 Interpretive Statements SINUS BRADYCARDIA WITH FIRST DEGREE AV BLOCK LOW QRS VOLTAGE IN PRECORDIAL LEADS [QRS DEFLECTION < 1.0 mV IN CHEST LEADS] Compared to ECG 05/11/2023 13:43:54 First degree AV block now present Low QRS voltage now present Atrial fibrillation no longer present ST (T wave) deviation no longer present Electronically Signed On 05-12-2023 8:38:43 POST PARTUM NURSE by Tejinder Tyler M.D. [email or web address]
--- NOTE | 2023-05-11 17:50 | PC.NURSE ---
Propofol and diltiazem drips stopped due to continued low blood pressures. Levophed drip increased. Provider aware.
[2023-05-11 18:35] LABS: Troponin 5 6HR 32.87 ng/L (0-10)
[2023-05-11 18:38] LABS: Troponin 5 6HR Delta 19.87 ng/L (0-12)
[2023-05-11] MEDS: vasopressin 40 UNIT/100 ML PREMIX 6 UNIT IV (18:40)
--- NOTE | 2023-05-11 18:40 | PC.NURSE ---
Vasopressin started. Blood pressures continue to drop. Provider aware. All sedation medications stopped at this time per MD.
--- NOTE | 2023-05-11 18:46 | PC.NURSE ---
MD verbal to increase levophed drip above max limit.
--- NOTE | 2023-05-11 18:46 | PC.NURSE ---
Report called to [facility] ICU bed 2173, Cindy Hart RN given report.
--- NOTE | 2023-05-11 19:01 | PC.NURSE ---
[facility] here to transport patient. Team given report.
--- NOTE | 2023-05-11 23:41 | PC.NURSE ---
Medications wasted with Jacqui Kidd RN Propofol 99 mL Fentanyl 43 mL Precedex 34 mL Versed 77 mL
--- NOTE | 2023-05-11 23:49 | PC.NURSE ---
Attempted to waste narcotic drip medications in pyxis. Patient not listed in pyxis. synthetic department supervisor notified.
== END 2023-05-11 19:25 | disposition admitted as inpatient to this hospital (09) ==
PROVIDERS: Emergency Provider Family Medicine; PCP Family Medicine
DX: A41.9 Sepsis, unspecified organism (principal); J18.9 Pneumonia, unspecified organism; J21.0 Acute bronchiolitis due to respiratory syncytial virus; Z11.52 Encounter for screening for COVID-19; E11.22 Type 2 diabetes mellitus with diabetic chronic kidney disease; I12.9 Hypertensive chronic kidney disease with stage 1 through stage 4 chronic kidney disease, or unspecified chronic kidney disease; N18.30 Chronic kidney disease, stage 3 unspecified; E11.40 Type 2 diabetes mellitus with diabetic neuropathy, unspecified; E78.5 Hyperlipidemia, unspecified
CPT/HCPCS: 31500; 36556; 36600; 51702; 71045; 76705; 80051; 80053; 81001; 82009; 82330; 82550; 82805; 83605; 83690; 83735; 83880; 84484; 85007; 85025; 85378; 87040; 87086; 87635; 87801; 87804; 93005; 94640; 94799; 96365; 96366; 96367; 96375; 99291; 99292; J1100; J1160; J2250; J2543; J2598; J2704; J3010; J3370; J3490; J7030; J7040; J7050